=== PATIENT | female | born 1980 | race Caucasian/White ===

== ENCOUNTER 2023-02-09 20:32 | Observation (INO) | payer MEDICARE, OTHER ==
[~2023-02-09] VITALS: Ht 149.9 cm; Wt 80.0 kg
[2023-02-09 21:52] VITALS: BP 188/104
[2023-02-09] MEDS ORDERED: ASPI325 PO (22:08)
[2023-02-09] MEDS ORDERED: BENADRYL25 MG PO (22:10)
[2023-02-09] MEDS ORDERED: MAGNESIUM OXID500 MG PO (22:11)
[2023-02-09] MEDS ORDERED: OMEP20ER PO (22:12)
[2023-02-09] MEDS ORDERED: DIAZ5 PO (22:14)
[2023-02-09] MEDS ORDERED: TIZA4 PO (22:17)
[2023-02-09] MEDS ORDERED: ERGO50000 PO (22:17)
[2023-02-09] MEDS ORDERED: LEVSOD25 PO (22:18)
[2023-02-09] MEDS ORDERED: OMEGA-3 FISH O1 EAC6 PO (22:19)
[2023-02-09] MEDS ORDERED: PROM25 PO (22:20)
[2023-02-09] MEDS ORDERED: ALBU90OI INH (22:21)
[2023-02-09] MEDS ORDERED: HYDCHL25 PO (22:22)
[2023-02-09] MEDS ORDERED: IBUP800 PO (22:23)
[2023-02-09] MEDS ORDERED: SUCR1 PO (22:24)
[2023-02-09] MEDS ORDERED: METF500C PO (22:24)
[2023-02-09] MEDS ORDERED: LABE200 PO (22:25)
[2023-02-09] MEDS ORDERED: MULTI-VITAMIN1 EAC2 PO (22:26)
[2023-02-09] MEDS ORDERED: IRON18 MG PO (22:26)
[2023-02-09 22:55] VITALS: BP 168/91
[2023-02-10 01:29] LABS: Anti-Xa UFH, PHA Monitoring <0.10 IU/mL; International Normalized Ratio 1.07; Prothrombin Time Results 11.2 Sec (9.7-11.5)
--- NOTE | 2023-02-10 01:44 | NUR ---
PT WAS A DIRECT ADMIT THIS SHIFT, SHE IS FROM [place]. PT HAS BEEN HAVING CHEST PRESSURE ON AND OFF FOR THE LAST COUPLE OF DAYS AND WAS SEEN AT HER PRIMARY. THEY WERE TRENDING HER TROPONINS AND THEY KEPT TREDNING UP SO SHE WAS DIRECTED TO THE ER. PT COBRA TRANSFERED TO [facility]. PT IS A&OX4, MAKES NEEDS KNOWN, BUT HAS NOT BEEN COMPLIANT WITH CARE. PT REFUSES A HEP GTT AT THIS TIME BECAUSE SHE WANTS HER IMIAGING TO SHOW IF THEIR IS A BLOOD CLOT OR NOT. SHE WAS TALKED TO BY THE CHIEF TELEPHONE OPERATOR AND THE DRKelly CAME TO BEDSIDE MULTIPLE TIMES. SHE AGREED IF HER HEALTH DECLINES THEN SHE WILL BE OPEN TO A HEP GTT. ORDERED SCDS AND THE PT REFUSED BECAUSE SHE IS AMBULATORY. PHYSICIAN ORDERED PT NPO BUT OKAY'D WATER. W/ BEING NPO IS SCHEDULED FOR Q6 CBGS. SHE REFUSED HER INSULIN AND WANTED TO MANAGE HER BLOOD SUGARS NATURALLY. SHE HAS BEEN PROVIDED WRITTEN AND VERBAL EDUACTION T/O THE SHIFT. SEE NOTES FOR ANY UPDATES.
[2023-02-10 03:36] VITALS: BP 153/90
--- NOTE | 2023-02-10 06:06 | NUR ---
SHIFT SUMMARY PT IS A&OX4, USES HER CALL LIGHT TO MAKE NEEDS KNOWN, AND IS A SBA TO THE BSC. PT GOT DIZZY WHEN SHE AMBULATED TO THE BATHROOM AND WAS EDUCATED THAT SHE NEEDS TO CALL FOR HELP AND USE THE BSC, SHE AGREED. PT HAS A MEDIPORT THAT HAS NS RUNNING AT A [facility]. SHE HAS REFUSED ANY BLOOD DRAWS EXCEPT HER TROPONINS TREND . PT HAS REFUSED MANY THINGS THIS SHIFT SUCH HER HEPARIN, NAUSEA MEDICATIONS, HER 0600 MEDICATIONS, SCDS, AND AT FIRST WAS REFUSING INSULIN BUT HAS NOW AGREED. EDUCATION HAS BEEN PROVIDED FROM THE FREIGHT AND PASSENGER AGENT, MULTPLE NURSE, AND THE DR. THIS SHIFT THE PT HAS HAD INFREQUENT CHEST PRESSURE AND HAS COMPLAINED OF NAUSEA ONCE. SHE STATED THAT SHE DID NOT WANT HER PHENERGAN WHEN IT WAS OFFERED. CHEST PAIN WENT AWAY ON ITS OWN. PT IS NPO BUT THE PHYSICIAN APPROVED HER TO DRINK WATER. SHE HAS A CHEST X RAY, ECHO, AND NM LUNG-VENT & PERFUSION TEST FOR TODAY. SHE HAS BEEN HYPERTENSIVE, DRKelly AWARE. PT IS VERY TECHNICAL ON WHAT MEDICATIONS SHE TAKES, WHEN SHE TAKES MEDICATIONS, AND HOW HER CARE IS HANDLED. HER CALL LIGHT IS IN REACH AND BED IS IN LOW. SEE NOTES FOR MORE UPDATES. BED IN LOW, CALL LIGHT IN REACH. SEE NOTES FOR ANY UPDATES.
[2023-02-10 07:30] VITALS: BP 169/100
--- NOTE | 2023-02-10 09:35 | NUR ---
Pt is sitting up in bed, pleasantly conversant, without any dyspnea nor chest discomfort. Ambulatory to the bathroom this morning to void and have BM without any symptoms. States that her only discomfort this morning is "complex migraine" which she gets chronically, and takes a specific regimen of medications for at home (Ibuprofen 800 mg, phenergan 25 mg, Magnesium 500 mg and Benadryl 50 mg). Denies any vision changes, denies weakness, does endorse numbness on the left side of her face, which she says is usual for her with a migraine. States that she follows with a neurologist at [facility]. Sinus rhythm-sinus tachycardia 95-108 bpm this morning. Declines her medications until she has some breakfast. STates that her PCP approves her medications (including levothyroxine, prilosec) to be given with food due to her nausea if she takes meds on empty stomach. Blood pressure noted high, will recheck again later. Echocardiogram completed at this time.
--- NOTE | 2023-02-10 10:21 | NUR ---
Meal tray provided for the pt. She declined it. Stated that she WAS able to take her oral medications without food, but that she "has to be careful". Took all her oral medications at this time. She is requesting Tylenol extra strength, states that she takes it daily for her arthritis.
--- NOTE | 2023-02-10 10:28 | NUR ---
Call to Dr. Erwin to request the 1000mg Tylenol which the pt requested.
[2023-02-10 11:30] VITALS: BP 179/96
--- NOTE | 2023-02-10 12:57 | NUR ---
Pt is drowsy, but ate lunch and states that her migraine is "much better".
[2023-02-10 16:36] VITALS: BP 143/74
--- NOTE | 2023-02-10 16:43 | NUR ---
Pt has been somnulent, napping in between conversations, meals, care, and toileting. She has had no complaints of any pain nor discomfort save for migraine headache, which per her statement was resolved after receiving the medications for it this morning. Appetite good, ambulatory to the bathroom independently. IVF infusing via mediport 10cc /hour for patency.
[2023-02-10 17:22] VITALS: BP 167/83
--- NOTE | 2023-02-10 17:30 | NUR ---
Pt called java application engineer light, reports that she is having chest discomfort. States that it is a pressure, which she rates 5/10 localized over the left sternal border about the 4 ICS. States it does not radiate, does not get worse with deep breaths, and onset was at rest in bed. No associated symptoms. She has just finished drinking a sugar free soda. Prilosec was refused by her an hour ago when it was offered, but she is agreeable to try it now. She is sitting up in bed, no apparent distress, crocheting. Normal sinus rhythm noted 70 bpm on the bedside telemetry screen. No changes noted. vital signs are stable.
--- NOTE | 2023-02-10 17:34 | NUR ---
Pt was given coverage for her blood sugar. She finds the injections painful; only allows them to be on the tricep area of the right arm. States that she thinks that she is "done with insulin". States that it messed up her system before and it took her a week to get back to normal.
--- NOTE | 2023-02-10 17:59 | NUR ---
Pt is upset because her dinner tray was delivered in a manner she disapproved of. States that the bread is untoasted and in a ziploc bag, which is unsanitary. She refuses to eat anything. she is tearful over the dinner. 15 minutes later she states she is having nausea, but refused the phenergan ordered for it. No vomiting. States that her chest pressure is about the same. She is sitting up in bed, crocheting and watching [employer] videos.
--- NOTE | 2023-02-10 19:01 | NUR ---
Pt is sleeping. She said earlier that she was going to call her after his meeting and ask him to come pick her up. States that since her VQ scan shows low probability for pulmonary embolism she thinks that there is probably nothing going on and she would rather go home. I encouraged her to stay to be able to discuss the results and recommendations with the physician in the morning; she replies that she has doctors in the family and she thinks they will help her. States that any results would be called to her anyway. At this time, she appears to have changed her mind.
--- NOTE | 2023-02-10 19:28 | NUR ---
Pt is awake, watching TV at time of bedside report. States that her chest is feeling fine now. Bedside report given to SUGEY Novak
[2023-02-10 20:42] VITALS: BP 178/95
--- NOTE | 2023-02-10 21:56 | NUR ---
ASSUMPION OF CARE PT IS A/OX4. PT REPORTS FEELING NEASEATED. PT REFUSED GLUCOSE CHECK BECAUSE SHE DID NOT WANT TO TAKE ANY MORE INSULIN BECAUSE SHE SAYS ITS MAKING HER FEEL SICK. THIS NURSE ASKED IF IT COULD BE CHECKED DUE TO GETTING INSULIN EARLIER BUT NOT GET INSULIN. PT AGREED LONG SHE USED HER OWN NEEDLE. PT ALSO REQUESTING IV ZOFRAN. HOSPITALIST NOTIFIED AND SAID MEDICATION NOT APPROPIATE DUE TO PROLONGED QRS. PT EDUCATED ABOUT THIS BUT SAID THAT OTHER FACILITIES GIVE IT TO HER ANYWAYS AND SHE WAS GOING TO CALL HER TO LEAVE TONIGHT BECAUSE NOBODY IS GIVING HER ANYTHING THAT SHE WANTS. PT STATES SHE WILL TAKE IV BENYDRYL OF SHE CAN HAVE IT. EMAR CHECKED AND PT GIVEN BENYDRYL WITH SUCESS. PT SAID SHE WOULD STAY UNTIL DOCTOR SAW HER IN THE AM.
[2023-02-11 00:09] VITALS: BP 139/79
[2023-02-11 04:35] VITALS: BP 173/91
[2023-02-11 05:00] LABS: BASOPHILS ABSOLUTE AUTO 0.07 K/mm3 (0.00-0.23); BASOPHILS PERCENT AUTO 0 % (0-2); EOSINOPHILS ABSOLUTE AUTO 0.07 K/mm3 (0.00-0.68); EOSINOPHILS PERCENT AUTO 0 % (0-6); Hemoglobin 9.8 g/dL (11.5-16.0); IMMATURE GRAN ABSOLUTE AUTO 0.08 K/mm3 (0.00-0.10); IMMATURE GRAN PERCENT AUTO 1 % (0-1); LYMPHOCYTES ABSOLUTE AUTO 5.34 K/mm3 (0.84-5.20); LYMPHOCYTES PERCENT AUTO 34 % (21-46); MONOCYTES ABSOLUTE AUTO 1.25 K/mm3 (0.16-1.47); MONOCYTES PERCENT AUTO 8 % (4-13); Mean Corpuscular HGB 24.8 pg (26.0-34.0); Mean Corpuscular HGB Conc 31.6 g/dL (31.5-36.5); Mean Corpuscular Volume 79 fL (80-100); Mean Platelet Volume 10.5 fL (9.1-12.4); NEUTROPHILS ABSOLUTE AUTO 8.76 K/mm3 (1.96-9.15); NEUTROPHILS PERCENT AUTO 56 % (41-73); Platelet Count 443 K/mm3 (150-400); RDW Coefficient Variation 14.7 % (11.7-14.2); Red Blood Cell Count 3.95 M/mm3 (3.80-5.20); White Blood Cell Count 15.57 K/mm3 (4.00-11.30)
[2023-02-11 05:23] LABS: Albumin, Blood 3.3 g/dL (3.4-5.0); Bilirubin, Total 0.2 mg/dL (0.1-1.0); Bun/Creatinine Ratio 34.5 (12.0-20.0); Calcium, Blood 10.9 mg/dL (8.5-10.1); Creatinine, Blood 0.49 mg/dL (0.40-1.00); Globulin, Blood 3.2 g/dL (2.2-4.0); Magnesium, Blood 2.1 mg/dL (1.6-2.4); Phosphorus, Blood 3.1 mg/dL (2.5-4.9); Potassium, Blood 3.7 mmol/L (3.5-5.5); Total Protein, Blood 6.5 g/dL (6.4-8.2)
--- NOTE | 2023-02-11 05:56 | NUR ---
SHIFT SUMMARY ASSUMED CARE OF PT AT 1900. PT IS A/OX4. HEART SOUNDS REGULAR. PT HAS FINE CRACKLES IN L LUNG. PT STATES SOME PAIN THERE DUE TO HX OF PNA LAST MONTH. PT IS INDEPENDENT TO BATHROOM. PT SLEPT UNTIL ABOUT 0400 WHEN SHE AWOKE FEELING NEASEATED AGAIN. HOSPITALIST NOTIFIED AND PERSCRIBED ZOFERAN AFTER REVEIWING CHART. PT EDUCATED ABOUT PROLONGED QTC. PT STILL WANTS TO LEAVE AFTER DOCTOR DISCUSSES ECHO READING.
[2023-02-11 08:15] VITALS: BP 186/89
--- NOTE | 2023-02-11 11:01 | NUR ---
PHONE CALL TO DR PRECIOUS LANG UPDATED THAT PT WILL BE COMPLETING 1 DAY PROTOCOL STRESS TEST TOMORROW DUE TO PT HAVING VQ SCAN YESTERDAY AND RADIOACTIVE DYE STILL BE PRESENT IN SYSTEM PER NUCLEAR MED. ORDERS FOR ADA/CARDIAC DIET FOR TODAY AND PT WILL BE NPO AT MIDNIGHT. ALSO CLARIFIED WITH DR LANG REGARDING PT "MIGRAINE COCKTAIL." RECEIVED TELEPHONE ORDER FOR PT TO TAKE 800MG IBUPROFEN PO, 25MG PHENERGAN PO, 400MG MAGNESIUM PO, AND 5OMG BENEDRYL PO ALL TOGETHER FOR MIGRAINES. ORDER TO DC IV BENEDRYL AND SWITCH TO PO. NURSE NOTIFY IN PLACE. ORDERS UPDATED IN EMAR.
[2023-02-11 11:44] VITALS: BP 180/92
--- NOTE | 2023-02-11 12:06 | NUR ---
PHONE CALL TO DR LANG PT BP 180/92. DR LANG NOTIFIED. ORDERS FOR AMLODIPINE 5MG NOW AND DAILY. PT ALSO C/O ADA DIET AND REQUESTING TO SWITCH TO REGULAR DIET. PT IS STILL REFUSING INSULIN. THIS RN DISCUSSED THE RISKS OF NOT BEING ON A CARDIAC DIET OR ADA DIET WITH CARDIAC SYMPTOMS AND ELEVATED BLOOD SUGARS WITH NO INSULIN. PT STATES "I DON'T EAT LIKE THAT AT HOME AND I WOULD RATHER JUST GO HOME IF THEY ARE GOING TO MAKE ME EAT LIKE THAT" PT STILL DECLINING INSULIN AND STATES IT MAKES HER NAUSEATED. THIS RN DISCUSSED THIS WITH DR LANG. ORDERS TO DC CHEM BG CHECKS AND INSULIN ORDER. DIET ORDER CHANGE TO REGULAR.
[2023-02-11 16:04] VITALS: BP 153/76
--- NOTE | 2023-02-11 17:02 | NUR ---
PT REQUESTING MEDICATIONS FOR MIGRAINE. DR LANG CONTACTED DUE TO MEDICATIONS NOT BEING DUE. DR LANG APPROVED MEDICATIONS TO BE BID. PT REQUESTING PHENERGAN, BENEDRYL, MAGNESIUM AND IBUPROFEN. THIS RN BROUGHT PT PO MEDICATIONS. PT REFUSING TO TAKE ANY OF THE MEDICATIONS DUE TO THE BENEDRYL BEING PO RATHER THAN IV. THIS RN EXPLAINED TO HER THAT THE IV BENEDRYL WAS ORIGINALLY ORDERED IN ANTICIPITATION OF HER GETTING A CT WITH CONTRAST AND PT HAVING ALLERGY TO THE DYE. PT STILL REFUSES TO TAKE ANY MEDICATIONS FOR HER HEADACHE AT THIS TIME.
--- NOTE | 2023-02-11 17:40 | NUR ---
SHIFT SUMMARY SEE PREVIOUS NOTES FOR PT UPDATE. PT A/O X4. SR IN THE 70-90'S ON TELE. SPO2 >92% ON RA. VSS. NO RESPIRATORY DISTRESS NOTED. PT AMBULATED IN THE HALLWAY TWICE TODAY AND TOLERATED WELL. SHE C/O MILD SOB WHEN BACK TO BED BUT LATER STATED THAT SHE FELT BETTER AFTER WALKING. PT HAS TKO FLUIDS INFUSIN IN HER MEDIPORT. SHE IS INDEPENDENT IN THE ROOM. USES THE CALL LIGHT APPROPRIATELY. WILL CONTINUE TO CARE FOR PT AND REPORT TO ONCOMING RN.
--- NOTE | 2023-02-11 18:24 | NUR ---
PT TRUCKER LIGHT AND REQUESTING AN AMA FORM TO SIGN. PT STATES SHE IS "UNABLE TO EAT BECAUSE OF THE SMELL OF THE POT ROAST" AND STATES THAT HER MIGRAINE IS "KILLING" HER AND THE DOCTORS KEEP CHANGING HER MEDICATIONS. PT TEARFUL WHILE TALKING. THIS RN REASSURED HER THAT WE HAVE THE SAME MEDICATIONS AVAILABLE THAT SHE TAKES AT HOME FOR HER MIGRAINES. SHE STILL DECLINES AND STATES SHE SHOULD HAVE BEEN GIVEN THEM EARLIER BECAUSE HER MIGRAINE IS TOO FAR GONE NOW. DR LANG NOTIFIED OF PT REQUEST. DR LANG REQUESTED THAT THE RISKS BE DISCUSSED WITH THE PT AND ITS UP TO HER IF SHE STILL WANTS TO LEAVE. THIS RN DISCUSSED THE RISKS IN DETAIL WITH PT AND SHE STATES SHE STILL DOES NOT WANT ANY MEDICATIONS AND WOULD BE BETTER OFF TREATING HERSELF AT HOME. AMA FORM SIGNED BY PT AND WITNESSED BY THIS RN. PT STATES HER WILL BE HERE IN APPROX 1 HOUR TO PICK HER UP. PT MEDIPORT STILL ACCESSED AND TKO FLUIDS INFUSING. THIS RN LEFT IN PLACE IN CASE SHE DECIDES TO CHANGE HER MIND PRIOR TO ARRIVING. PT NOW AMBULATING DOWN THE FULLER AND STATES SHE IS WALKING IN HOPES THAT HER CHEST PAIN WILL RESOLVE. PT STILL DECLINING ANY MEDICATIONS FOR PAIN. NO CHANGES ON TELE NOTED. ALL VITALS STABLE. RESPIRATIONS ARE EVEN AND UNLABORED.
--- NOTE | 2023-02-11 18:44 | NUR ---
PT STATING SHE SAW CHANGES ON HERE TELEMETRY WHEN SHE GOT BACK TO BED AND STATES SHE IS NOW SOB. RESPIRATIONS ARE EVEN AND UNLABORED. SPO2 98%. RR 18. THIS RN REVIEWED TELEMETRY WITH JUAN PABLO FANG. NO CHANGES ON TELE WERE NOTED. PT REMAINS SINUS RHYTHM WITH A HR IN THE 70'S. PT SITTING IN BED ON PHONE PLAYING A GAME. NO ACUTE DISTRESS NOTED BY THIS RN. WILL GIVE REPORT ON PT TO ONCOMING RN.
[2023-02-11 20:07] VITALS: BP 183/89
--- NOTE | 2023-02-11 20:37 | NUR ---
ASSUMED CARE ASSUMED CARE OF PT AT 1900. PT CALLED THIS NURSE INTO ROOM C/O CHEST PAIN. VITALS TAKEN, LUNGS AND HEART ASSESSED, NO TELE CHANGES NOTED. PT BP WAS ELEVATED, PT MEDICATED PER EMAR. DISCUSSED CARE WITH CHARGE.
--- NOTE | 2023-02-11 20:37 | NUR ---
PT INTERACTION THIS CHARGE CALLED TO ROOM. PT STATES, "I WANT PAIN MEDICATION TO BE GIVEN TO ME BEFORE I GO HOME, MY IS HERE TO TAKE ME HOME BECAUSE YOUR STAFF HAVE BEEN IGNORING ME AND THIS FACILITY IS INCOMPETENT." THIS RN INFORMES PT THAT SHE HAS NOT BEEN IGNORED AND THAT STAFF HAS CONSISTENTLY BEEN IN HER ROOM FOR EVERY CALL LIGHT THAT SHE HAS USED AND MORE, THAT MULTIPLE PHONE CALLS HAVE BEEN MADE TO THE DOCTOR REGARDING HER MEDICATIONS, CP, AND PATIENT WISHES". PT STATES "THE DOCTOR SHOULD BE IN HERE RIGHT NOW SINCE I SIGNED AN AMA FORM." STATES "I COME FROM A FAMILY OF DOCTORS THAT HOLD POWER HERE AND MY FAMILY HAS BUILT HOSPITALS HERE" "I JUST WANT MY MEDIPORT DEACCESSED AND I WANT PAIN MEDS TO BE GIVEN TO ME. MY IS HERE NOW TO PICK ME UP." THIS RN INFORMED PATIENT AND EDUCATED THAT "YOU CAN CHOOSE TO STAY AND RECEIVE FURTHER TREATMENT OR YOU CAN CHOOSE TO LEAVE AMA AND LEAVE AGAINST MY AND THE [facility] RECOMMENDATION RECOMMENDATION. YOU WERE SCHEDULED FOR A POSSIBLE STRESS TEST TOMORROW BUT IF YOU LEAVE THEN YOU WILL HAVE TO GO ABOUT THAT ANOTHER WAY" "IF YOU ARE LEAVING AMA, WE CANNOT SEND YOU HOME WITH TAKE HOME MEDICATIONS AND THAT IS YOUR CHOICE". PT STATES" I AM LEAVING. DEACCESS MY PORT." PORT DEACCESSED BY SUGEY BASSETT. TO ROOM. AMA FORM HAD BEEN SIGNED 3 HOURS PRIOR, PATIENT HAS BEEN WAITING IN ROOM FOR TO DRIVE FROM [place]" PT AMA WITH @2039.
== END 2023-02-11 20:40 | disposition left against medical advice (07) ==
LOC: PCU 20:32
PROVIDERS: Family Medicine; Pharmacist; ADMIT Internal Medicine
DX: R07.9 Chest pain, unspecified (principal); Z53.29 Procedure and treatment not carried out because of patient's decision for other reasons; Z91.041 Radiographic dye allergy status; D68.2 Hereditary deficiency of other clotting factors; I10 Essential (primary) hypertension; D72.829 Elevated white blood cell count, unspecified; E11.9 Type 2 diabetes mellitus without complications; G43.909 Migraine, unspecified, not intractable, without status migrainosus; Z88.8 Allergy status to other drugs, medicaments and biological substances; Z79.4 Long term (current) use of insulin; E03.9 Hypothyroidism, unspecified
CPT/HCPCS: 71045; 78580; 80053; 82947; 83735; 84100; 84484; 85025; 85520; 85610; 85730; 93005; 93010; 93306; 94760; 96374; 96375; 96376; A9270; A9540; G0378; J1200; J1642; J2405; J2920; J7050